=== PATIENT | male | born 1965 | race Caucasian/White ===

== ENCOUNTER 2016-07-07 18:17 | Inpatient (IN) | payer BC ==
--- NOTE | ~2016-07-07 | DS ---
Unit #: [id number] #: [id number] Patient: ALEXANDRA SAHNI [id number] [place] [address] [id number] MR#: [id number] NAME: ALEXANDRA SAHNI. ROOM: P210 Age: 51 Sex: M Admission Date: 07/07/2016 : 1965 Discharge Date: 07/11/2016 Attending Physician: Emmanuel Gonzalez M.D. Primary Care Physician: Donny Dunlap M.D. DISCHARGE SUMMARY REASON FOR ADMISSION The patient is a 51-year-old white male, admitted to the [address] [place] [address] for alcohol detox. HOSPITAL COURSE The patient was admitted to the [address] [place] [address] unit and placed on routine detoxification protocol for alcohol. He was begun on Lexapro 10 mg daily to address depressive symptoms. The patient's stay in the hospital was an otherwise uneventful one. His detox went smoothly and by 07/11/2016, he was requesting discharge. He requested followup in the [facility] intensive outpatient program as an offer in the afternoon hours. Discharge was ordered. FINAL DIAGNOSES Alcohol use disorder, dysthymic disorder, gastroesophageal reflux disease, hypertension, atrial fibrillation. DISCHARGE MEDICATIONS The patient is discharged on the following medications: Xarelto 20 mg daily for anticoagulation, Tikosyn 250 mcg b.i.d. for atrial fibrillation, Toprol-XL 25 mg once daily for hypertension, Norvasc 10 mg once daily for hypertension, Protonix 40 mg daily for GERD, and Lexapro 10 mg daily for depression. DISCHARGE INSTRUCTIONS No dietary or physical restrictions were placed upon the patient at the time of discharge. FOLLOWUP He will follow up in the [facility] chemical dependency intensive outpatient program. PROGNOSIS His prognosis is considered good. Dictated by... Emmanuel Gonzalez M.D. CB/cheryl TD: 07/11/2016 15:29 JOB #: [id number] Unit #: [id number] #: [id number] Patient: ALEXANDRA SAHNI DISCHARGE SUMMARY Page 1 of 1 X Emmanuel Gonzalez MD X DISCHARGE SUMMARY
--- NOTE | ~2016-07-07 | PN ---
Unit #: [id number] #: [id number] Patient: ALEXANDRA SAHNI [id number] [facility] [address] [place] [address] [id number] MR#: [id number] NAME: ALEXANDRA SAHNI. ROOM: P210 Age: 51 Sex: M Admission Date: 07/07/2016 : 1965 Attending Physician: Emmanuel Gonzalez M.D. Admitting Physician: Emmanuel Gonzalez M.D. Primary Care Physician: Vin Stallings PROGRESS NOTES DATE 07/09/2016 DISCUSSION The patient's detox continues. He has required Ativan at each detoxification assessment the most recent dose having been given at 12 noon. We will continue current treatment. The patient is active within the therapeutic milieu. Dictated by... Emmanuel Gonzalez M.D. CB/sophie TD: 07/10/2016 04:57 JOB #: [id number] MIKHAIL PROGRESS NOTES Page 1 of 1 X Emmanuel Gonzalez MD X PROGRESS NOTE
--- NOTE | ~2016-07-07 | PA ---
Unit #: [id number] #: [id number] Patient: ALEXANDRA SAHNI [id number] [facility] [address] [place] [address] [id number] MR#: [id number] NAME: ALEXANDRA SAHNI. ROOM: P210 Age: 51 Sex: M Admission Date: 07/07/2016 : 1965 Date of Assessment: 07/08/2016 Attending Physician: Emmanuel Gonzalez M.D. Admitting Physician: Emmanuel Gonzalez M.D. Primary Care Physician: Donny Dunlap M.D. PSYCHIATRIC ASSESSMENT IDENTIFYING INFORMATION The patient is a 51-year-old white male admitted to the [address] [place] [address] with a history of increasing alcohol use. INFORMANT(S) Patient. RELIABILITY Good. CHIEF COMPLAINT My drinking. HISTORY OF PRESENT ILLNESS The patient is a 51-year-old white male with no prior history of chemical dependence or other psychiatric treatment. He is admitted to the hospital after presenting yesterday reporting use of about a fifth of hard liquor on a daily basis. The patient reports that he has been drinking like this for approximately 5 years and as a result his and children have left him. 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 The patient reports no current suicidal or homicidal ideation and denies prior suicide attempts or gestures. He denies abuse of psychoactive substances apart from alcohol. He does complain of mild depress and states that his primary care physician did prescribe Wellbutrin for him "a couple of years ago" but he felt that it little for him. PAST PSYCHIATRIC HISTORY As above, the patient has been in 12-step programming in the past. FAMILY HISTORY Noncontributory. SOCIAL HISTORY The patient has graduated the [employer] with a degree in finance. He reports alcohol use as noted previously and uses smokeless tobacco. He has 2 children ages 12 and 14. He is currently from his and children. MEDICAL HISTORY Patient suffers from atrial fibrillation and obstructive sleep apnea. Unit #: [id number] #: [id number] Patient: ALEXANDRA SAHNI MEDICATION HISTORY 1. Xarelto. 2. Dofetilide. 3. Omeprazole. 4. Amlodipine. 5. Metoprolol. ALLERGIES None. MENTAL STATUS EXAM At this time, reveals the patient to be a well-developed, well-nourished white male appearing his stated age. He is in no apparent physical distress at the time of examination. He is awake, alert, oriented in all spheres. His mood is mildly dysphoric. His affect congruent. Speech is generally relevant and coherent. There are no gross deficits in memory or cognition noted. Intelligence is judged to be in the average range based on fund of knowledge. The patient is cooperative throughout the interview. He is currently denying suicidal/homicidal ideation or psychotic features. Judgement and insight appear to be intact. ASSETS AND LIABILITIES Patient's assets, motivation for change. Liabilities, none noted. ADMITTING DIAGNOSES 1. Alcohol use disorder. 2. Dysthymic disorder. 3. Atrial fibrillation. 4. Hypertension. 5. Gastroesophageal reflux disease. 6. Obstructive sleep apnea. PSYCHIATRIC PLAN/TREATMENT GOALS The patient remains hospitalized for safety and stabilization. We will add Lexapro 10 mg daily to the patient's home medications. The patient will participate in appropriate sims and milieu activities and routine detoxification protocol for alcohol has been initiated. ESTIMATED LENGTH OF STAY Three to five days with follow up to take place in the intensive outpatient program provided by this facility. Dictated by... Emmanuel Gonzalez M.D. LYNDON/jania TD: 07/08/2016 14:12 JOB #: [id number] Unit #: [id number] #: [id number] Patient: ALEXANDRA SAHNI PSYCHIATRIC ASSESSMENT Page 1 of 1 X Emmanuel Gonzalez MD PSYCHIATRIC ASSESSMENT
--- NOTE | ~2016-07-07 | CO ---
Unit #: [id number] #: [id number] Patient: ALEXANDRA SAHNI [id number] [place] [address] [id number] MR#: [id number] NAME: ALEXANDRA SAHNI. ROOM: P210 Age: 51 Sex: M Admission Date: 07/07/2016 : 1965 Attending Physician: Emmanuel Gonzalez M.D. Primary Care Physician: Donny Dunlap M.D. Consultation Date: 07/08/2016 CONSULTATION REPORT NOE Knight is a 51-year-old with multiple medical problems that were outlined under his admission H and P dated 07/08/2016. His list of home medications was also included in this history and physical exam. Please see H and P dated 07/08/2016. Dictated by... Steffi Matthew P.A.-C. for Vin Mancia/william TD: 07/11/2016 02:09 JOB #: [id number] CONSULTATION REPORT Page 1 of 1 X Steffi Matthew CONSULTATION REPORT
--- NOTE | ~2016-07-07 | PN ---
Unit #: [id number] #: [id number] Patient: ALEXANDRA SAHNI [id number] [facility] [address] [place] [address] [id number] I MR#: [id number] NAME: ALEXANDRA SAHNI. ROOM: P210 Age: 51 Sex: M Admission Date: 07/07/2016 : 1965 Attending Physician: Emmanuel Gonzalez M.D. Admitting Physician: Emmanuel Gonzalez M.D. Primary Care Physician: Vin Stallings PROGRESS NOTES DATE 07/10/2016 DISCUSSION The patient's detox symptoms seem to be mitigating somewhat as he is not required Ativan as frequently today. We are looking at probable discharge in the next couple of days, and I am recommending the patient follow in the intensive outpatient program at [facility]. Dictated by... Emmanuel Gonzalez M.D. CB/bzg TD: 07/10/2016 13:54 JOB #: [id number] MIKHAIL PROGRESS NOTES Page 1 of 1 X Emmanuel Gonzalez MD X PROGRESS NOTE
--- NOTE | ~2016-07-07 | HP ---
Unit #: [id number] #: [id number] Patient: ALEXANDRA SAHNI [id number] [place] [address] [id number] MR#: [id number] NAME: ALEXANDRA SAHNI. ROOM: P210 Age: 51 Sex: M Admission Date: 07/07/2016 : 1965 Attending Physician: Emmanuel Gonzalez M.D. Admitting Physician: Emmanuel Gonzalez M.D. Primary Care Physician: Donny Dunlap M.D. HISTORY AND PHYSICAL HISTORY OF PRESENT ILLNESS Alexandra is a 51 year old admitted to [address] [place] [address] because of his abuse of alcohol. He is detoxing. PAST MEDICAL HISTORY 1. Long history of alcohol abuse. 2. Obstructive sleep apnea. 3. High blood pressure. 4. History of atrial fib. a. Chronic anticoagulation therapy b. Chronic anti-arithmetic medication PAST SURGICAL HISTORY Left leg. ALLERGIES No known drug allergies. SOCIAL HISTORY He does not smoke. Drinks at least a fifth of liquor on a daily basis. Denies illicit drug use. FAMILY HISTORY Medically noncontributory. REVIEW OF SYSTEMS CONSTITUTIONAL: No fever or chills. HEENT: Denies any sore throat, ear pain or runny nose. CARDIOVASCULAR: Denies chest pain, irregular heart rhythm or palpitations. CHEST: Denies shortness of breath or cough. No hemoptysis. GASTROINTESTINAL: Denies nausea, vomiting, diarrhea or chronic constipation. ENDOCRINE: Denies history of increased thirst or urination. No recent significant weight loss or gain. GENITOURINARY: Denies dysuria, frequency, or hematuria. SKIN: Denies any rashes. HEMATOLOGIC: Denies history of increased bleeding or bruising. MUSCULOSKELETAL: Denies any hot, swollen joints. No generalized muscle pain. NEUROLOGIC: Denies problems with vision or speech. No frequent, severe headaches. No numbness, tingling or weakness in any extremities. Denies loss of bladder or bowel control. Unit #: [id number] #: [id number] Patient: ALEXANDRA SAHNI CURRENT MEDICATIONS 1. Detox protocol 2. Lexapro 10 mg q day 3. Xarelto 20 mg q day 4. Protonix 40 mg q day 5. Norvasc 10 mg q day 6. Toprol XL 25 mg q day 7. Tikosyn 250 mg b.i.d. 8. Protonix 40 mg q day 9. Diastat p.r.n. PHYSICAL EXAMINATION GENERAL: Alert, well-nourished, in no apparent distress. VITAL SIGNS: Blood pressure 142/96, heart rate 80, respirations 16, temperature 98.6. WEIGHT: 241 pounds. HEIGHT: 6'4". SKIN: Warm and dry without rash or lesion. HEENT: Normocephalic. TMs not viewed. Oral and nasal passages clear. Conjunctivae clear. Pupils equal, round and reactive to light and accommodation. Extraocular movements intact. NECK: Supple without lymphadenopathy or thyromegaly. HEART: Regular rate and rhythm without murmur. LUNGS: Clear. ABDOMEN: Soft, nontender. : Not done. EXTREMITIES: No evidence of cyanosis, clubbing or edema. Moves all extremities without focal deficit. NEUROLOGICAL: Grossly within normal limits. Cranial Nerves: II: Visual smalls are intact. III, IV AND : Extraocular movements are intact. Pupils are equal, round and reactive to light. V: Facial sensation is grossly normal. VII: Facial movements and expression are normal. VIII: Auditory acuity grossly intact. IX, X: Uvula is midline. Phonation is normal. XI: Patient shrugs shoulders and turns head normally. XII: Tongue protrudes in the midline. Sensory and Motor Function: Sensory and motor sensation is grossly normal. Motor: moves all extremities well. Coordination: Gait is normal. Deep Tendon Reflexes: Intact. IMPRESSION Psychiatric admission RECOMMENDATIONS PSYCHIATRIC: Per psychiatrist. MEDICAL: 1. I see no contraindications to participating in facility's activities. 2. Detox per protocol. 3. Continue Xarelto, Norvasc, Toprol XL and Tikosyn. MEDICAL PROGNOSIS Good. MEDICAL CONDITION Stable. Unit #: [id number] #: [id number] Patient: ALEXANDRA SAHNI Dictated by... Steffi Matthew P.A.-C. for Vin Mancia/sophie TD: 07/08/2016 20:59 JOB #: [id number] HISTORY AND PHYSICAL Page 1 of 1 X Steffi Matthew HISTORY AND PHYSICAL
[2016-07-08 09:49] LABS: BASOPHIL% 0.9 % (0-2.5); EOSINOPHIL# 0.3 X10e3 (0-0.7); EOSINOPHIL% 5.1 % (0.0-7.0); HEMATOCRIT 44.9 % (38.0-50.0); HEMOGLOBIN 15.5 gm/dL (13.0-16.0); LYMPHOCYTE# 1.1 X10e3 (1.0-3.5); LYMPHOCYTE% 21.6 % (17.0-45.0); MEAN CELL VOLUME 101.6 FL (83-96); MEAN CORPUSCULAR HEMOGLOBIN 35.1 PG (28-34); MEAN CORPUSCULAR HGB CONC 34.6 g/dL (30-36); MEAN PLATELET VOLUME 8.1 FL (6.5-11.5); MONOCYTE# 0.7 X10e3 (0-1.0); NEUTROPHIL# 3.2 X10e3 (1.5-7.1); NEUTROPHIL% 59.4 % (40-75); PLATELET COUNT 135 X10e3 (140-420); RED BLOOD COUNT 4.42 X10e (3.90-5.60); RED CELL DISTRIBUTION WIDTH 12.8 % (11.0-15.5); WHITE BLOOD COUNT 5.3 X10e3 (4.0-10.5)
[2016-07-08 09:57] LABS: DIFF IND NO
[2016-07-08 09:58] LABS: ALBUMIN SERUM 3.8 g/dL (3.5-5.0); BILIRUBIN,TOTAL 2.1 mg/dL (0.2-2.0); CALCIUM SERUM 8.7 mg/dL (8.4-10.2); GLOM FILT RATE Estimated 87.4 mL/min (>60); POTASSIUM 3.8 mmol/L (3.5-5.1); PROTEIN TOTAL SERUM 6.9 g/dL (6.0-8.3)
[2016-07-10 09:58] LABS: URINE APPEARANCE CLEAR; URINE BLOOD NEG (NEG); URINE COLOR DK YELLOW; URINE GLUCOSE NEG (NEG); URINE KETONE NEG (NEG); URINE LEUKOCYTE ESTERASE NEG (NEG); URINE NITRATE NEG (NEG); URINE PROTEIN TRACE (NEG); URINE SPECIFIC GRAVITY 1.011 (1.003-1.035)
[2016-07-10 10:06] LABS: URINE BILIRUBIN NEG (NEG)
[2016-07-10 10:44] LABS: AMPHETAMINE NEG (NEG); BARBITURATES NEG (NEG); BENZODIAZEPINES POS (NEG); COCAINE NEG (NEG); MARIJUANA NEG (NEG); OPIATES NEG (NEG); TRICYCLIC ANTIDEPRESSANTS NEG (NEG); U METHADONE NEG (NEG)
== END 2016-07-11 15:15 | disposition hospice, home (50) | DRG 897 ==
LOC: P2S 18:17
PROVIDERS: Specialist
PROC: HZ2ZZZZ Detoxification Services for Substance Abuse Treatment (ICD-10-PCS; principal; 2016-07-07)
DX: F10.10 Alcohol abuse, uncomplicated (principal); I48.91 Unspecified atrial fibrillation; I10 Essential (primary) hypertension; F34.1 Dysthymic disorder; K21.9 Gastro-esophageal reflux disease without esophagitis; G47.33 Obstructive sleep apnea (adult) (pediatric); Z79.01 Long term (current) use of anticoagulants
CPT/HCPCS: 80053; 80307; 81003; 85025; 86592